=== PATIENT | female | born 1995 | race Two or more races ===

== ENCOUNTER 2016-11-23 21:39 | Observation (INO) | payer MEDICAID ==
[~2016-11-23] VITALS: Ht 157.5 cm; Wt 65.8 kg
[2016-11-23 22:31] LABS: Basophils # (auto) 0 uL; Basophils % (auto) 0.2 % (0.0-2.0); CONDITION AutoValidated; Eosinophils # (auto) 0 uL; Hematocrit 36.8 % (36.0-46.0); Hemoglobin 12.3 g/dL (12.2-16.2); Lymphocytes # (auto) 1.5 uL; Lymphocytes % (auto) 11.8 % (10.0-50.0); Mean Corpuscular Hemoglobin 29.4 pg (28.0-32.0); Mean Corpuscular Hgb Conc. 33.5 g/dL (32.0-36.0); Mean Corpuscular Volume 87.6 fL (80.0-100.0); Mean Platelet Volume 8.5 fL (7.4-10.4); Monocytes # (auto) 0.6 uL; Neutrophils # (auto) 10.3 uL; Platelet Count (auto) 251 10^3/uL (140-450); Red Cell Distribution Width 13.6 % (11.6-16.0); White Blood Cell 12.4 10^3/uL (4.4-10.8)
[2016-11-23 22:49] LABS: Anion Gap 9 (5-15); Aspartate Aminotransferase 16 U/L (15-37); Blood Urea Nitrogen 11 mg/dL (7-18); Calcium 8.7 mg/dL (8.5-10.1); Carbon Dioxide 23 mmol/L (21-32); Chloride 106 mmol/L (98-107); GFR African American 198 mL/min; GFR Non-African American 164 mL/min; Glucose 113 mg/dL (74-106); Magnesium 2.1 mg/dL (1.6-2.6); Potassium 3.8 mmol/L (3.5-5.1); Sodium 138 mmol/L (136-145)
[2016-11-23 22:54] LABS: Alkaline Phosphatase 66 U/L (45-117); Bilirubin, Total 0.5 mg/dL (0.2-1.0); Total Protein 7.6 g/dL (6.4-8.2)
[2016-11-24] MEDS ORDERED: SODIUM CHLORIDE 0.9% 1,000 ML IV ONE (06:53)
[2016-11-24] MEDS ORDERED: ONDANSETRON HCL 4 MG/2 ML VIAL IV ONE (07:00)
[2016-11-24] MEDS ORDERED: MORPHINE SULFATE 4 MG/ML SYRG IV ONE (07:00)
[2016-11-24 09:20] VITALS: BP 103/69
== END 2016-11-24 09:30 | disposition home or self-care (01) | DRG 465 ==
LOC: ER 22:12 → OVERFLOW 22:13 → ER 11-24 00:07
PROVIDERS: ADMIT Emergency Medicine; ATTEND Emergency Medicine
DX: N20.0 Calculus of kidney (principal); R42 Dizziness and giddiness; R53.1 Weakness; R05 Cough
CPT/HCPCS: 36415; 71020; 74176; 80053; 83735; 84443; 84484; 84702; 85025; 93005; 96361; 96374; 96375; 99285; G0378; J2270; J2405

== ENCOUNTER 2017-06-07 11:41 | Emergency (ER) | payer MEDICAID ==
[~2017-06-07] VITALS: Ht 160 cm; Wt 46.7 kg
[2017-06-07 12:01] VITALS: BP 117/72
== END 2017-06-07 14:03 | disposition home or self-care (01) ==
LOC: ER 11:41
DX: J20.9 Acute bronchitis, unspecified (principal)

== ENCOUNTER 2018-06-17 23:55 | Observation (INO) | payer MEDICAID ==
[~2018-06-17] VITALS: Ht 160 cm; Wt 71.7 kg
[2018-06-18] MEDS ORDERED: PREN-145 OR (00:27)
== END 2018-06-18 02:15 | disposition home or self-care (01) | DRG 565 ==
LOC: LDRP 23:55
PROVIDERS: ADMIT Specialist; ATTEND Specialist
DX: O47.9 False labor, unspecified (principal); O21.2 Late vomiting of pregnancy; O62.9 Abnormality of forces of labor, unspecified; Z3A.38 38 weeks gestation of pregnancy
CPT/HCPCS: 59025; 81002; G0378

== ENCOUNTER 2018-06-22 11:27 | Observation (INO) | payer MEDICAID ==
[~2018-06-22 11:27] MED LIST: PREN-145 OR
== END 2018-06-22 12:20 | disposition home or self-care (01) | DRG 566 ==
LOC: INTOOBSV 11:27 → LDRP 11:27
PROVIDERS: ADMIT Specialist; ATTEND Specialist
DX: O62.9 Abnormality of forces of labor, unspecified (principal); J45.909 Unspecified asthma, uncomplicated; O99.513 Diseases of the respiratory system complicating pregnancy, third trimester; Z3A.38 38 weeks gestation of pregnancy
CPT/HCPCS: 59025; 81002; G0378

== ENCOUNTER 2018-10-13 19:28 | Emergency (ER) | payer SELFPAY ==
[~2018-10-13] VITALS: Ht 160 cm; Wt 67.1 kg
[2018-10-13] MEDS ORDERED: LIDOCAINE 1% HCL (LOCAL ANESTH.) INJ 20ML MDV IJ ONE (22:00)
[2018-10-13] MEDS ORDERED: TETANUS-DIPTH-ACEL PERTUSSIS 0.5ML SYRG IM ONE (22:15)
[2018-10-13 22:35] VITALS: BP 120/82
== END 2018-10-13 22:37 | disposition home or self-care (01) ==
LOC: ER 19:28
DX: S90.852A Superficial foreign body, left foot, initial encounter (principal); W25.XXXA Contact with sharp glass, initial encounter; Y93.89 Activity, other specified; Y99.8 Other external cause status; Y92.89 Other specified places as the place of occurrence of the external cause
CPT/HCPCS: 10120; 73620; 90471; 90715

== ENCOUNTER 2019-03-17 18:54 | Emergency (ER) | payer MEDICAID ==
[~2019-03-17] VITALS: Ht 160 cm; Wt 64.4 kg
[2019-03-17 19:11] VITALS: BP 113/68
[2019-03-17 19:40] LABS: Urine Amorphous Crystal FEW /hpf (None Seen); Urine Bacteria FEW /hpf (None Seen); Urine Blood Negative /uL (Negative); Urine Mucus FEW (None Seen); Urine Specific Gravity 1.026 (1.001-1.035); Urine WBC 4 /hpf (0 - 5)
== END 2019-03-17 22:43 ==
LOC: ER 18:57
DX: O23.41 Unspecified infection of urinary tract in pregnancy, first trimester (principal); Z3A.13 13 weeks gestation of pregnancy
CPT/HCPCS: 81001

== ENCOUNTER 2024-11-22 22:20 | Observation (INO) | payer MEDICAID ==
[~2024-11-22] VITALS: Ht 160 cm; Wt 83.0 kg
--- NOTE | 2024-11-23 00:25 | DVH ---
LIMITED OB ULTRASOUND > 14 WKS: HISTORY: S/P FALL TECHNIQUE: Multiple real-time grayscale images of the gravid uterus with duplex Doppler color flow an d M-mode spectral analysis. TRANSDUCER: Transabdominal COMPARISON: None FINDINGS: IUP single live fetus at 25 weeks 4 days based on composite averages of the BPD, head circumference, abdominal circumference and femur length heart rate 147 beats per minute MVP 3.9 cm Cervix 3.3 cm Cephalic Presentation Posterior placenta without previa or abruption. IMPRESSION: 1. IUP single live fetus at 25 weeks 4 days AUA with positive heart tones.
--- NOTE | 2024-11-23 09:14 | DVHDS2 ---
Physician Discharge Progress N Final Diagnosis: IUP 25 wk s/p fall Operations or Procedures: Operations or Procedures NST OB ultrasound limited (WNL) Condition on Discharge: Stable Disposition: Home Discharge Instructions: Diet: Regular Activity: No Restrictions, As Tolerated Follow Up/Referral: N/A Medications: N/A Follow Up Care: Discharge Statement: "Patient was advised to return to the ER or call 911 if any headaches, dizziness, shortness of breath, chest pain, abdominal pain, bleeding, fevers, or worsening of medical condition. Patient was counseled about treatment plan, medications, possible side effects, patientverbalized understanding. All questions were answered to the best of my ability. This discharge took greater then 30 minutes in planning, reviewing documentation, counseling the patient, and discussing with other team members." Visit Coding OBGYN Date of Service: Nov 23, 2024 Billing Provider: KATY GARCIA DO FORENSIC DOCUMENT EXAMINER Common Visit Codes: 57258-DVT/OBS SAME DATE (MOD) FORENSIC DOCUMENT EXAMINER Procedure Codes: 31318-92- NON-STRESS TEST KATY GARCIA DO Nov 23, 2024 09:14
== END 2024-11-22 23:36 | disposition home or self-care (01) ==
LOC: LDRP 22:20
PROVIDERS: ADMIT Obstetrics & Gynecology; ATTEND Obstetrics & Gynecology
DX: O60.02 Preterm labor without delivery, second trimester (principal); Z3A.25 25 weeks gestation of pregnancy; Z79.899 Other long term (current) drug therapy
CPT/HCPCS: 76815; 81002; 94760; G0378

== ENCOUNTER 2025-02-05 00:32 | Observation (INO) | payer MEDICAID ==
[~2025-02-05] VITALS: Ht 154.9 cm; Wt 81.6 kg
[2025-02-05] MEDS ORDERED: MORPHINE SULFATE 4 MG/ML SYR/VIAL IM PRN (01:00)
[2025-02-05 01:28] VITALS: BP 128/76; PULSE 89; RESP 18
[2025-02-05] MEDS: ONDANSETRON HCL 4 MG/2 ML VIAL IV ONE (01:28)
[2025-02-05] MEDS: MORPHINE SULFATE 4 MG/ML SYR/VIAL IV ONE (01:28)
[2025-02-05 01:33] LABS: Hematocrit 30.9 % (36.0-46.0); Hemoglobin 10.2 g/dL (12.2-16.2); Mean Corpuscular Hemoglobin 25.9 pg (28.0-32.0); Mean Corpuscular Volume 78.3 fL (80.0-100.0); Nucleated Red Blood Cells % 0.2 %
[2025-02-05] MEDS: LACTATED RINGER'S 1,000 ML IV SCH (01:37)
[2025-02-05 01:42] LABS: Alanine Aminotransferase 11 U/L (7-40); Albumin 3.7 g/dL (3.2-4.8); Alkaline Phosphatase 115 U/L (46-116); Anion Gap 9 (5-15); Bilirubin, Total 0.3 mg/dL (0.2-1.0); Calcium 8.8 mg/dL (8.7-10.4); Carbon Dioxide 24 mmol/L (20-31); Chloride 107 mmol/L (98-107); Glucose 96 mg/dL (74-106); Potassium 3.7 mmol/L (3.5-5.1); Sodium 140 mmol/L (136-145); Total Protein 6.0 g/dL (5.7-8.2); Uric Acid 4.8 mg/dL (3.1-7.8)
[2025-02-05 01:46] LABS: BUN/Creatinine Ratio 10.2 (10.0-20.0); Blood Urea Nitrogen < 5 mg/dL (9-23)
[2025-02-05 01:49] LABS: INR 0.92 (0.9-1.15); Partial Thromboplastin Time 26.2 SEC (24.5-34.5); Prothrombin Time 9.8 sec (9.3-11.8)
[2025-02-05 02:06] LABS: Protein, Urine 13.7 mg/dL (1-14)
[2025-02-05 02:10] LABS: Urine Protein, UAD Negative (Negative)
[2025-02-05 02:12] LABS: Amphetamine Screen, Urine Neg (NEGATIVE); Barbiturate Scree,Urine Neg (NEGATIVE); Benzodiazephine Screen, Urine Neg (NEGATIVE); Cannabinoid Screen, Urine Neg (NEGATIVE); Cocaine Screen, Urine Neg (NEGATIVE); Opiate Scree,Urine Neg (NEGATIVE); Phencyclidine Screen, Urine Neg (NEGATIVE)
--- NOTE | 2025-02-05 02:31 | DVH ---
INDICATION: Upper right quadrant pain TECHNIQUE: Multiple real-time sonographic images were obtained of the right upper quadrant. COMPARISON: None FINDINGS: The liver demonstrates homogeneous echotexture without focal mass lesions. The liver measures 16.3 c m. There is no intrahepatic or extrahepatic ductal dilatation. The common duct measures 3 mm. Multiple echogenic shadowing stones within the gallbladder. Focal thickening of the superior gallblad robbin wall up to 7 mm. Reportedly positive sonographic Nguyễn's sign. The right kidney measures 12.6 cm. No visualized hydronephrosis, stone, or lesion. The pancreas is not well visualized due to overlying bowel gas. No visualized ascites. IMPRESSION: 1. Sonographic findings consistent with acute calculus cholecystitis.
--- NOTE | 2025-02-05 02:33 | DVH ---
INDICATION: labor TECHNIQUE: Limited transabdominal sonographic imaging of maternal and structures. COMPARISON: US OBSTERICAL LIMITED on DOS: 11/22/24 FINDINGS: The cervix is obscured by the head, limiting assessment. The internal cervix/os appears funnele d with triangular morphology, measuring up to 3.2 cm in diameter. Single intrauterine gestation with cephalic presentation. heart rate measures 135 beats per mi nute. Fundal placenta without evidence of previa. ELY measures 13.3 cm, within normal limits. No visualized ascites. IMPRESSION: 1. Funneled appearance of the cervix measuring up to 3.2 cm in diameter. Characterization is limited by cephalic presentation. 2. Single intrauterine gestation. No other evidence of gestational complication.
--- NOTE | 2025-02-05 03:21 | DVHDS2 ---
Physician Discharge Progress N Final Diagnosis: Acute calculus cholecystitis Problems List: (1) Acute calculous cholecystitis Operations or Procedures: Operations or Procedures SUBJECTIVE Mikal Freedman is a 29 yo with IUP at 36w2d presenting for severe R upper q uadrant pain Patient states she has been inpatient at [facility] [place] since Sunday02/01/25 for r/o labor. According to patient, her cervix was "5cm" the whole time. Despite her pain not being resolved, she was discharged home on 02/04/25. EDC: 03/03/25 Review of Systems: Neuro: No complaints Heart: No complaints Lungs: No complaints GI: 10/10 R upper quadrant pain. Occasional reflux, vomiting, and nausea : No complaints Skin: No complaints Extremities: No complaints OBJECTIVE 0101: BP: 151/79, HR: 86, SpO2: 97% 0117: BP: 128/76, HR: 80, SpO2: 98%, T: 98.0 FHR: Baseline: 135 Variability: Moderate Accelerations: Present Decelerations: Absent Category: 1 UCs: occasional, mild to palpation Neuro: A&O x4. Heart: Regular rate and rhythm Lungs: Clear bilaterally GI: Gravid. Tenderness in upper R quadrant : SVE discussed and performed with consent by hot car charger. Cervix 3/60/-2. Skin: Dry and intact. No rashes or lesions Extremities: Cap refill WNL. ASSESSMENT 29 yo with IUP at 36w2d Cervical funneling Category 1 Tracing Cholelithiasis Cholecystitis PLAN -IV hydration and IV morphine for pain management -PIH panel sent. Labs WNL -Abdominal and obstetric US performed -Consulted with Dr Wu regarding patient. Discussed labwork, US images, FHR, SVE, and med hx. states to d/c patient with strict instructions to go back to [facility] (or other preferred high risk facility) for additional treatment options -Discussed labor precautions, kick counts, and cholecystitis. Answered all patient questions and concerns. Patient verbalizes understanding with the plan and is intending to go back to [facility] [place] at this time. Other Interventions Other Interventions PATIENT: MIKAL FREEDMAN ACCT: [id number] UNIT: [id number] : 1995 LOC: [facility] ROOM / BED: TRIAGE1 / A AGE / SEX: 29 / F ADM STATUS: ADM IN SERVICE [id number] ORDERING PHYSICIAN: DARIANA RUANO CNM PROCEDURE(s): ABDL - ABDOMEN LIMITED REASON: Upper right quadrant pain ORDER NUMBER(s): [id number], ACCESSION NUMBER(s): [id number] INDICATION: Upper right quadrant pain TECHNIQUE: Multiple real-time sonographic images were obtained of the right upper quadrant. COMPARISON: None FINDINGS: The liver demonstrates homogeneous echotexture without focal mass lesions. The liver measures 16.3 cm. There is no intrahepatic or extrahepatic ductal dilatation. The common duct measures 3 mm. Multiple echogenic shadowing stones within the gallbladder. Focal thickening of the superior gallbladder wall up to 7 mm. Reportedly positive sonographic Nguyễn's sign. The right kidney measures 12.6 cm. No visualized hydronephrosis, stone, or lesion. The pancreas is not well visualized due to overlying bowel gas. No visualized ascites. IMPRESSION: 1. Sonographic findings consistent with acute calculus cholecystitis. ATED BY: AMANDA FARIAS MD DICTATED DATE/TIME: 02/05/25227 SIGNED BY: AMANDA FARIAS MD SIGNED DATE/TIME: 02/05/25227 PATIENT: MIKAL FREEDMAN ACCT: [id number] UNIT: [id number] : 1995 LOC: [facility] ROOM / BED: TRIAGE1 / A AGE / SEX: 29 / F ADM STATUS: ADM IN SERVICE [id number] ORDERING PHYSICIAN: DARIANA RUANO CNM PROCEDURE(s): OBLTD - OBSTERICAL LIMITED REASON: labor ORDER NUMBER(s): [id number], ACCESSION NUMBER(s): [id number] INDICATION: labor TECHNIQUE: Limited transabdominal sonographic imaging of maternal and structures. COMPARISON: US OBSTERICAL LIMITED on DOS: 11/22/24 FINDINGS: The cervix is obscured by the head, limiting assessment. The internal cervix/os appears funneled with triangular morphology, measuring up to 3.2 cm in diameter. Single intrauterine gestation with cephalic presentation. heart rate measures 135 beats per minute. Fundal placenta without evidence of previa. ELY measures 13.3 cm, within normal limits. No visualized ascites. IMPRESSION: 1. Funneled appearance of the cervix measuring up to 3.2 cm in diameter. Characterization is limited by cephalic presentation. 2. Single intrauterine gestation. No other evidence of gestational complication. ATED BY: AMANDA FARIAS MD DICTATED DATE/TIME: 02/05/25230 SIGNED BY: AMANDA FARIAS MD SIGNED DATE/TIME: 02/05/25230 Condition on Discharge: Stable Disposition: Home (Pt to go to [facility] [place]) Discharge Instructions: Diet: See Comment Diet comment: Discussed diet for management of gallstones Activity: No Restrictions, As Tolerated Medications: No change Follow Up Care: Discharge Statement: "Patient was advised to return to the ER or call 911 if any headaches, dizziness, shortness of breath, chest pain, abdominal pain, bleeding, fevers, or worsening of medical condition. Patient was counseled about treatment plan, medications, possible side effects, patientverbalized understanding. All questions were answered to the best of my ability. This discharge took greater then 30 minutes in planning, reviewing documentation, counseling the patient, and discussing with other team members." Visit Coding OBGYN Date of Service: Feb 05, 2025 Billing Provider: DARIANA RUANO CNM FIBRE COMPOSITE TECHNICIAN Common Visit Codes: 55813-SZCZYJG INP/OBS CARE (HIGH) FIBRE COMPOSITE TECHNICIAN Procedure Codes: 42076-54- NON-STRESS TEST DARIANA RUANO CNM Feb 05, 2025 03:20
== END 2025-02-05 03:33 | disposition home or self-care (01) ==
LOC: LDRP 00:32
PROVIDERS: ADMIT Obstetrics & Gynecology; ATTEND Obstetrics & Gynecology
DX: O99.613 Diseases of the digestive system complicating pregnancy, third trimester (principal); K80.00 Calculus of gallbladder with acute cholecystitis without obstruction; O21.2 Late vomiting of pregnancy; Z3A.36 36 weeks gestation of pregnancy; Z98.890 Other specified postprocedural states; Z79.899 Other long term (current) drug therapy
CPT/HCPCS: 36415; 59025; 76705; 76815; 80053; 80307; 81001; 82570; 84156; 84550; 85025; 85610; 85730; 86850; 86900; 86901; 94760; 96361; 96374; 96375; G0378; J2270; J2405; 96360